=== PATIENT | female | born 1960 ===

== ENCOUNTER 2016-08-16 13:00 | Emergency (ER) | payer BC, OTHER ==
[2016-08-16 13:19] VITALS: BP 149/86
[2016-08-16] MEDS ORDERED: Ondansetron ODT TAB* 4 MG PO ONE (15:36)
[2016-08-16] MEDS ORDERED: Acetaminophen ADULT LIQ* 650 MG/20.3 ML UDC PO ONE (15:38)
--- NOTE | 2016-08-16 16:07 | RAD ---
HISTORY: Cough and congestion COMPARISONS: None VIEWS: 2: Frontal dual-energy and lateral views of the chest. FINDINGS: CARDIOMEDIASTINAL SILHOUETTE: The cardiomediastinal silhouette is normal. SUNDAY: The sunday are normal. PLEURA: The costophrenic angles are sharp. No pleural abnormalities are noted. LUNG PARENCHYMA: There is hyperinflation with flattening of the diaphragm and expansion of the AP diameter of the chest. ABDOMEN: The upper abdomen is clear. There is no subphrenic gas. BONES AND SOFT TISSUES: Degenerative changes are noted along the spine. OTHER: None. IMPRESSION: HYPERINFLATION, CONSISTENT WITH COPD. NO ACTIVE CARDIOPULMONARY DISEASE.
--- NOTE | 2016-08-16 19:58 | UC ---
Respiratory Complaint HPI - HPI Summary HPI Summary: Patient arrives to with CC of cough with yellow sputum production, recent fever, body aches, SOB and chest discomfort x 2 weeks. She is tearful and ill- appearing upon examination d/t fear of SOB. She has a PMHx of asthma and uses a rescue inhaler. She has taken symbicort in the past for relief, but denies having any at the moment or needing any recently. She states she had the flu vaccine, but denies the PNA vac. Otherwise healthy and takes no medications. - History of Current Complaint Chief Complaint: UCGeneralIllness Stated Complaint: COUGH,CONGESTION Hx Obtained From: Patient ?: No Onset/Duration: Gradual Onset Timing: Constant Severity Initially: Moderate Severity Currently: Moderate Pain Intensity: 0 Pain Scale Used: 0-10 Numeric Character: Cough: Productive Aggravating Factors: Allergens, Deep Breaths Alleviating Factors: Bronchodilator Associated Signs And Symptoms: Positive: Dyspnea, Pleuritic Chest Pain, Wheezing , URI, Nasal Congestion, Sinus Discomfort - Risk Factors Pulmonary Embolism Risk Factors: Negative Cardiac Risk Factors: Negative Pseudomonas Risk Factors: Chronic Lung Disease Tuberculosis Risk Factors: Negative - Allergies/Home Medications Allergies/Adverse Reactions: Allergies Allergy/AdvReac Type Severity Reaction Status Date / Time Erythromycin Allergy Severe GI Upset Verified 08/16/16 13:19 Adhesive Tape Allergy Intermediate Rash Verified 08/16/16 13:19 PMH/Surg Hx/FS Hx/Imm Hx Previously Healthy: Yes Endocrine History Of: Denies: Diabetes, Thyroid Disease Cardiovascular History Of: Denies: Cardiac Disorders, Hypertension Respiratory History Of: Reports: Asthma - Surgical History Surgical History: Yes Surgery Procedure, Year, and Place: ankle surgery. brain surgery. [facility] - Family History Known Family History: Positive: Cardiac Disease, Respiratory Disease - Social History Occupation: Employed Full-time Lives: With Family Alcohol Use: Occasionally Substance Use Type: None Smoking Status (MU): Never Smoked Tobacco Have You Smoked in the Last Year: No Review of Systems Constitutional: Fatigue Skin: Negative ENT: Sore Throat, Nasal Discharge Respiratory: Shortness Of Breath, Cough Cardiovascular: Negative Motor: Negative Neurovascular: Negative Musculoskeletal: Negative Neurological: Headache Psychological: Negative All Other Systems Reviewed And Are Negative: Yes Physical Exam Triage Information Reviewed: Yes Appearance: No Pain Distress, Well-Nourished, Ill-Appearing Vital Signs: Initial Vital Signs Temp 97.5 F 08/16/16 13:15 Pulse 70 08/16/16 13:15 Resp 18 08/16/16 13:15 BP 149/86 08/16/16 13:15 Pulse Ox 99 08/16/16 13:15 Vital Signs Reviewed: Yes Eye Exam: Normal Eyes: Positive: Conjunctiva Inflamed ENT: Positive: Pharyngeal erythema, TMs normal Dental Exam: Normal Neck exam: Normal Neck: Positive: Supple, Nontender, No Lymphadenopathy Respiratory Exam: Normal Respiratory: Positive: Chest non-tender, Lungs clear, Normal breath sounds Cardiovascular: Positive: RRR Musculoskeletal: Positive: Strength Intact, ROM Intact Neurological Exam: Normal Psychological Exam: Normal Psychological: Positive: Normal Response To Family, Age Appropriate Behavior Skin Exam: Normal Diagnostic Evaluation - Laboratory O2 Sat by Pulse Oximetry: 99 - Radiology Xray Interpretation: Positive (See Comments) - COPD Radiology Interpretation Completed By: Radiologist Respiratory Course/Dx - Course Course Of Treatment: Patient educated on URI symptoms and given rx for albuterol inhaler, advair, short course of prednisone, claritin and cough medication. Xray negative for PNA. COPD shown d/t chronic asthma. Provider encouraged fluids, cough medication, advair and will hold off on any antibiotics based on symptoms. Patient encouraged to follow up with PCP and if symptoms worsen, return to for further evaluation. Humidifer in home. - Differential Dx/Diagnosis Differential Diagnosis/HQI/PQRI: Bronchitis, Lower Resp Infection, Sinusitis Provider Diagnoses: Cough, Asthma, Upper Respiratory Illness Discharge - Discharge Plan Condition: Stable Disposition: HOME Prescriptions: Albuterol HFA INHALER* [Ventolin HFA Inhaler*] 1 puff INH Q4H PRN #1 mdi PRN Reason: Cough Budesonide/Formote 80/4.5(NF) [Symbicort 80/4.5 (NF)] 1 puff INH BID #1 mdi Fluticasone-Salmeterol 250-50* [Advair Diskus 250-50*] 1 puff INH BID #1 diskus Hydrocodone Polistirex-Chlorph [Tussionex Pennkinetic Ext 10-8 mg/5Ml] 1 sobia PO Q4H #150 ml MDD 30 Ondansetron ODT TAB* [Zofran Odt TAB*] 4 mg PO Q6H PRN #15 tab.odt MDD 4 PRN Reason: Nausea predniSONE TAB* [Deltasone TAB*] 10 mg PO DAILY #30 tab Patient Education Materials: Upper Respiratory Infection (ED) Forms: *Work Release Referrals: Radha Yuan MD [Primary Care Provider] - Additional Instructions: Take medications as prescribed to you. If your symptoms worsen or fail to improve, please come back to UC or ED. Chest xrays were negative for pneumonia. You have been taken out of work for Thursday with limitations on work until based on cough medication. Follow up with your PCP.
[2016-08-16] MEDS ORDERED: Fluticasone-Salmeterol 250-50* DISKUS INH SCH (21:00)
--- NOTE | 2016-09-15 07:50 | PN ---
Progress Note - Progress Note Note: BP 149/86 on arrival. Medications and history obtained. Patient encouraged to follow up with PCP regarding this issue.
== END 2016-08-16 16:51 | disposition home or self-care (01) ==
LOC: UCCORT 13:00
DX: J06.9 Acute upper respiratory infection, unspecified (principal); R05 Cough; J45.909 Unspecified asthma, uncomplicated; Z88.1 Allergy status to other antibiotic agents
CPT/HCPCS: 71020; 99212; A9270-GY; G0463